=== PATIENT | female | born 1955 | race African-American/Black ===

== ENCOUNTER → 2019-07-04 | Outpatient (CLI) | payer BC, OTHER ==
[~2019-07-04] MED LIST: CIMZIA; CIPROFLOXACIN500 M1 PO; FLEXERIL PO; FOLIC ACID1 MG PO; HYDROCODONE-AP1 EAC6 PO; KEFLEX500 MG PO; METHOTREXATE 22.5 MG PO; NORCO 5-325 TA1 EACH PO; PREDNISONE 5 MG5 MG PO; REMICADE 1100 MG/VIA; VITAMIN C100 M1 PO; VITAMIN D1000 UNI1 PO; ZOSTRIX56.6 G1 TP; ZOVIRAX800 MG PO; ZYRTEC10 M2 PO
== END ==
LOC: HYPER 06-25 09:09
DX: T81.49XD Infection following a procedure, other surgical site, subsequent encounter (principal); M06.9 Rheumatoid arthritis, unspecified; Z87.891 Personal history of nicotine dependence; Y83.8 Other surgical procedures as the cause of abnormal reaction of the patient, or of later complication, without mention of misadventure at the time of the procedure

== ENCOUNTER → 2019-07-18 | Outpatient (CLI) | payer BC, OTHER | LOC: HYPER 07:03 | DX: T81.49XD Infection following a procedure, other surgical site, subsequent encounter (principal); M06.9 Rheumatoid arthritis, unspecified; Z87.891 Personal history of nicotine dependence; Z91.81 History of falling; Y83.8 Other surgical procedures as the cause of abnormal reaction of the patient, or of later complication, without mention of misadventure at the time of the procedure ==

== ENCOUNTER → 2019-08-01 | Outpatient (CLI) | payer BC, OTHER | LOC: HYPER 05:49 | DX: T81.49XD Infection following a procedure, other surgical site, subsequent encounter (principal); M06.9 Rheumatoid arthritis, unspecified; Z87.891 Personal history of nicotine dependence; Y83.8 Other surgical procedures as the cause of abnormal reaction of the patient, or of later complication, without mention of misadventure at the time of the procedure ==